=== PATIENT | male | born 1950 | race Caucasian/White ===

== ENCOUNTER → 2018-06-30 | Day surgery (SDC) | payer OTHER, MEDICARE ==
--- NOTE | 2018-07-01 17:33 | PATH ---
Cytology Non-Gynecological Report Patient Name: AYAAN ROY [facility]. Rec. #: [id number] /Age/Gender: 1950 (Age: 67) / M Account: [id number] Location: U SURGICAL Taken: 06/30/2018 Received: 06/30/2018 Reported: 07/01/2018 Physicians: Stef Messer M.D. Specimen(s) Received THYROID FNA RIGHT Clinical History Right thyroid nodule, 3.10 x 1.78 1.67 cm Final Diagnosis THYROID, RIGHT, FINE NEEDLE ASPIRATION: SATISFACTORY FOR EVALUATION. [place] CLASS II: BENIGN. CYTOLOGIC FINDINGS ARE CONSISTENT WITH A BENIGN FOLLICULAR NODULE. SMALL FOLLICULAR CELLS DISPERSED MACRO FOLLICLES AND AGGREGATES IN A BACKGROUND OF COLLOID PRESENT. Electronically Signed Karley Rider M.D. Gross Description Received are eight direct smears, four of which are air-dried and Diff-Quik stained, and four of which are alcohol fixed and Pap stained. Also received is 20 ml of bloody formalin from which one cellblock is prepared.
== END | disposition home or self-care (01) ==
LOC: JASU-SURG 07:27
PROVIDERS: ATTEND Internal Medicine Endocrinology, Diabetes & Metabolism
PROC: 0G9G3ZX Drainage of Left Thyroid Gland Lobe, Percutaneous Approach, Diagnostic (ICD-10-PCS; principal; 2018-06-30)
DX: E04.1 Nontoxic single thyroid nodule (principal)
CPT/HCPCS: 76942; 88173; 88305-TC

== ENCOUNTER 2020-05-18 14:39 | Emergency (ER) | payer OTHER, MEDICARE | END 2020-05-18 17:18 | disposition home or self-care (01) | LOC: JVIRT 14:39 | DX: Z03.818 Encounter for observation for suspected exposure to other biological agents ruled out (principal) | CPT/HCPCS: C9803; G2012-GT; U0003 ==

== ENCOUNTER 2020-06-07 12:13 | Emergency (ER) | payer OTHER, MEDICARE | END 2020-06-07 12:50 | disposition home or self-care (01) | LOC: JVIRT 12:13 | DX: Z20.828 Contact with and (suspected) exposure to other viral communicable diseases (principal) | CPT/HCPCS: C9803; G2012-GT; U0003 ==

== ENCOUNTER 2022-10-30 04:10 | Day surgery (SDC) | payer OTHER, MEDICARE ==
[2022-10-26 09:49] VITALS: BMI 36.9
[2022-10-30 13:36] VITALS: TEMP 97.6
[2022-10-30 13:43] VITALS: PULSE 76
[2022-10-30 14:18] VITALS: BP 127/71; RESP 18
== END 2022-10-30 14:20 | disposition home or self-care (01) ==
LOC: JASU-ENDO 04:10
PROVIDERS: ATTEND Internal Medicine Gastroenterology
PROC: 0DBH8ZX Excision of Cecum, Via Natural or Artificial Opening Endoscopic, Diagnostic (ICD-10-PCS; 2022-10-30)
PROC: 0DBP8ZX Excision of Rectum, Via Natural or Artificial Opening Endoscopic, Diagnostic (ICD-10-PCS; 2022-10-30)
PROC: 3E0H8KZ Introduction of Other Diagnostic Substance into Lower GI, Via Natural or Artificial Opening Endoscopic (ICD-10-PCS; 2022-10-30)
PROC: 0DBL8ZX Excision of Transverse Colon, Via Natural or Artificial Opening Endoscopic, Diagnostic (ICD-10-PCS; principal; 2022-10-30 11:15)
DX: Z12.11 Encounter for screening for malignant neoplasm of colon (principal); D12.3 Benign neoplasm of transverse colon; D12.8 Benign neoplasm of rectum; K63.5 Polyp of colon; K64.8 Other hemorrhoids; K57.30 Diverticulosis of large intestine without perforation or abscess without bleeding; I10 Essential (primary) hypertension
CPT/HCPCS: 88305-TC